=== PATIENT | male | born 1955 | race Caucasian/White ===

== ENCOUNTER 2018-09-12 12:48 | Day surgery (SDC) | payer BC ==
[2018-09-12] MEDS ORDERED: PROPOFOL 10 MG/ML VIAL IV ONE (12:49)
[2018-09-12] MEDS ORDERED: LIDOCAINE 2% MDV (20MG/ML) 20ML VIAL IV ONE (12:49)
--- NOTE | 2018-09-14 10:50 | Operative Note ---
DATE OF SURGERY: 09/12/2018 Surgeon: Wu Griffin D.O. Referring physician: Alok Seymour D.O. OPERATION: 1. COLONOSCOPY TO THE CECUM WITH COLD SNARE POLYPECTOMY X6. 2. COLD BIOPSY FORCEPS POLYPECTOMY X1. INDICATION: A family history of colon cancer in the patient's mother. He did have polyps in the past which were hyperplastic in type. His last examination was 6 years ago. Anesthesia: Intravenous sedation was administered by the Department of Anesthesiology and included Diprivan titrated to effect. PROCEDURE: Following informed consent from this alert individual, including a discussion of the risks and benefits of the procedure and opportunity for the patient to ask questions, the patient was in the left lateral decubitus position. Digital rectal examination was performed. No abnormalities were noted. Following this, the Olympus PCF 180 video colonoscope was inserted in the rectum without resistance. The rectal mucosa initially had a normal appearance with normal folds and distensibility. There were 2 polyps noted within the rectum, measuring approximately 4 mm in size and each was removed with cold snare polypectomy and suctioned through the colonoscope into a collection trap. The descending colon was then cannulated and demonstrated multiple polyps, also measuring 4 to 6 mm in size and these likewise were removed with cold snare polypectomy and the tissue was suctioned through the colonoscope into a collection trap. In the transverse colon there was a diminutive polyp noted on the edge of the fold, it was removed with biopsy forceps. The colonoscope was further advanced to the cecum. The cecum was well defined by noting the appendiceal orifice and the ileocecal valve. From the base of the cecum, the colonoscope was then withdrawn. No additional abnormalities were detected throughout the bowel. There were a few small diverticula noted in the sigmoid region. The colonoscope was then withdrawn back into the rectum. Retroflexion accomplished following air insufflation and failed to demonstrate any additional changes. The instrument was straightened and removed. The patient tolerated the procedure well. The colon preparation was good. He was returned to the recovery area in stable condition. IMPRESSION: 1. Two rectal polyps and 4 descending colon polyps, measuring between 4 and 6 mm in size, removed with cold snare polypectomy. 2. One transverse diminutive colon polyp, measuring 3 mm in size, removed with biopsy forceps. 3. Mild sigmoid diverticulosis. 4. Family history of colon cancer (the patient's mother). RECOMMENDATIONS: The patient was advised that he should receive a copy of his pathology report at home in the next 2 to 3 weeks, if not he was asked to call my office to review the results of testing today. Further recommendations forthcoming, pending those results. As always, thank you for allowing me to participate in the care of your patient. CC: Alok Seymour DO Wu Griffin DO ADINA
== END 2018-09-12 14:54 | disposition home or self-care (01) ==
LOC: HOP 12:48
PROVIDERS: ATTEND Internal Medicine Gastroenterology
DX: Z12.11 Encounter for screening for malignant neoplasm of colon (principal); Z80.0 Family history of malignant neoplasm of digestive organs; K62.1 Rectal polyp; D12.4 Benign neoplasm of descending colon; D12.3 Benign neoplasm of transverse colon; K57.30 Diverticulosis of large intestine without perforation or abscess without bleeding; E78.00 Pure hypercholesterolemia, unspecified; I48.91 Unspecified atrial fibrillation